=== PATIENT | female | born 1950 ===

== ENCOUNTER 2018-09-19 16:07 | Observation (INO) ==
[2018-09-19] MEDS ORDERED: GLUCAGON 1 MG VIAL IM PRN (19:06)
[2018-09-19] MEDS ORDERED: ONDANSETRON 4 MG/2 ML VIAL IV PRN (19:06)
[2018-09-19] MEDS ORDERED: DEXTROSE 50% 25 GM/50 ML VIAL IV PRN (19:06)
[2018-09-19] MEDS ORDERED: ACETAMINOPHEN 325 MG TABLET PO PRN (19:06)
[2018-09-19] MEDS: INSULIN REGULAR 100 UNIT/ML SUBCUT SCH (21:00)
[2018-09-19] MEDS: SODIUM CHLORIDE 0.9% 1,000 ML IV SCH (21:08)
[2018-09-19] MEDS: ATORVASTATIN 40 MG TABLET PO SCH (21:08)
[2018-09-19] MEDS: ENOXAPARIN 40 MG/0.4 ML SYRINGE SUBCUT SCH (21:08)
[2018-09-20 03:20] LABS: Basophils # 0.1 10*3/uL (0.0-0.2); Basophils % 0.8 % (0.0-0.8); Eosinophils # 0.2 10*3/uL (0.0-0.87); Eosinophils % 2.1 % (0.00-10.9); Hematocrit 36.1 VOL% (35.7-47.0); Immature Granulocytes % 0.2 %; Immature Granulocytes Absolute 0.02 #; Lymphocytes # 2.2 10*3/uL (1.4-4.0); Lymphocytes % 26.1 % (21.3-54.2); Mean Corpuscular HGB Conc 33.2 GM/DL (32-36); Mean Corpuscular Hemoglobin 30 PG (27-34); Mean Corpuscular Volume 90.3 FL (87-102); Mean Platelet Volume 10.5 FL (9.6-12.0); Monocytes # 0.7 10*3/uL (0.11-0.8); Monocytes % 8.2 % (1.7-12.7); Neutrophils # 5.3 10*3/uL (1.4-7.4); Neutrophils % 62.6 % (38.7-73.9); Platelet Count 296 T/CUMM (130-400); Red Cell Distribution Width 12.5 % (9.3-17.3); White Blood Count 8.5 T/CUMM (4-12)
[2018-09-20 03:50] LABS: Calcium 8.3 MG/DL (8.5-10.1); Potassium 3.1 MMOL/L (3.5-5.1); Risk Ratio 2.97; Thyroid Stimulating Hormone 2.5 uIU/ml (0.358-3.74); VLDL CHOLESTEROL 41.6 MG/DL
[2018-09-20] MEDS: SODIUM CHLORIDE 0.9% 1,000 ML IV SCH ×4 (06:27→21:03)
[2018-09-20] MEDS ORDERED: POTASSIUM CHLORIDE 20 MEQ TABLET PO PRN (07:46)
[2018-09-20] MEDS ORDERED: MAGNESIUM SULF RIDER 4 GM in PREMIX 1 EACH IV PRN ×2 (07:46→11:42)
[2018-09-20] MEDS: INSULIN REGULAR 100 UNIT/ML SUBCUT SCH ×4 (08:13→21:02)
[2018-09-20] MEDS: MAGNESIUM SULF RIDER 2 GM in PREMIX 1 EACH IV PRN (08:52)
[2018-09-20] MEDS: CLOPIDOGREL 75 MG TABLET PO SCH (08:53)
[2018-09-20] MEDS: metFORMIN 500 MG TABLET PO SCH ×2 (08:53→17:04)
[2018-09-20] MEDS: ASPIRIN EC 81 MG TABLET PO SCH (08:54)
[2018-09-20] MEDS: POTASSIUM CHLORIDE 20 MEQ TABLET PO PRN ×4 (08:54→17:05)
[2018-09-20] MEDS ORDERED: LISINOPRIL 2.5 MG TABLET PO SCH (09:00)
[2018-09-20] MEDS ORDERED: MAGNESIUM SULF RIDER 2 GM in PREMIX 1 EACH IV PRN (11:42)
[2018-09-20] MEDS: PANTOPRAZOLE 20 MG TABLET PO SCH (12:15)
[2018-09-20] MEDS: LISINOPRIL 5 MG TABLET PO SCH (13:48)
[2018-09-20] MEDS: NITROGLYCERIN 2% OINT 1 INCH/GM PACK TOP SCH ×2 (13:48→18:27)
[2018-09-20] MEDS: GABAPENTIN 100 MG CAPSULE PO SCH (21:02)
[2018-09-20] MEDS: ATORVASTATIN 40 MG TABLET PO SCH (21:02)
[2018-09-20] MEDS: ENOXAPARIN 40 MG/0.4 ML SYRINGE SUBCUT SCH (21:02)
[2018-09-20] MEDS: ACETAMINOPHEN 325 MG TABLET PO SCH (21:02)
[2018-09-21] MEDS: NITROGLYCERIN 2% OINT 1 INCH/GM PACK TOP SCH ×3 (00:12→12:14)
[2018-09-21] MEDS: SODIUM CHLORIDE 0.9% 1,000 ML IV SCH ×2 (00:12→03:46)
[2018-09-21 03:31] LABS: Basophils # 0.1 10*3/uL (0.0-0.2); Eosinophils # 0.2 10*3/uL (0.0-0.87); Eosinophils % 2.8 % (0.00-10.9); Hematocrit 34.6 VOL% (35.7-47.0); Hemoglobin 11.3 GM/DL (12.0-16.0); Immature Granulocytes % 0.1 %; Immature Granulocytes Absolute 0.01 #; Lymphocytes # 2.3 10*3/uL (1.4-4.0); Lymphocytes % 31.5 % (21.3-54.2); Mean Corpuscular HGB Conc 32.7 GM/DL (32-36); Mean Corpuscular Hemoglobin 30 PG (27-34); Mean Corpuscular Volume 92.5 FL (87-102); Mean Platelet Volume 10.3 FL (9.6-12.0); Monocytes # 0.6 10*3/uL (0.11-0.8); Monocytes % 7.7 % (1.7-12.7); Neutrophils # 4.1 10*3/uL (1.4-7.4); Neutrophils % 56.9 % (38.7-73.9); Platelet Count 283 T/CUMM (130-400); Red Blood Count 3.74 MC/CUMM (3.8-5.5); Red Cell Distribution Width 12.6 % (9.3-17.3); White Blood Count 7.3 T/CUMM (4-12)
[2018-09-21 03:50] LABS: Calcium 7.7 MG/DL (8.5-10.1); Osmolality,Calculated 284.8 MOS/KG (273-304); Potassium 3.9 MMOL/L (3.5-5.1)
[2018-09-21] MEDS: LISINOPRIL 5 MG TABLET PO SCH (05:26)
[2018-09-21] MEDS: INSULIN REGULAR 100 UNIT/ML SUBCUT SCH ×2 (08:06→12:14)
[2018-09-21] MEDS ORDERED: cloNIDine 0.1 MG TABLET PO ONE (08:22)
[2018-09-21] MEDS ORDERED: FUROSEMIDE 40 MG/4 ML VIAL IV ONE (08:45)
[2018-09-21] MEDS ORDERED: LABETALOL 20 MG/4 ML SYRINGE IV ONE (08:46)
[2018-09-21] MEDS: MAGNESIUM SULF RIDER 2 GM in PREMIX 1 EACH IV PRN (08:58)
[2018-09-21] MEDS ORDERED: LISINOPRIL 5 MG TABLET PO SCH (09:00)
[2018-09-21] MEDS: ASPIRIN EC 81 MG TABLET PO SCH (09:07)
[2018-09-21] MEDS: PANTOPRAZOLE 20 MG TABLET PO SCH (09:07)
[2018-09-21] MEDS: metFORMIN 500 MG TABLET PO SCH (09:07)
[2018-09-21] MEDS: GABAPENTIN 100 MG CAPSULE PO SCH (09:07)
[2018-09-21] MEDS: CLOPIDOGREL 75 MG TABLET PO SCH (09:07)
[2018-09-21] MEDS: ACETAMINOPHEN 325 MG TABLET PO SCH (10:55)
[2018-09-21 12:03] VITALS: BP 120/58
== END 2018-09-21 14:00 | disposition home or self-care (01) ==
LOC: N.TELES → SUATTDRO 18:41
PROVIDERS: ADMIT Internal Medicine; ATTEND Hospitalist

== ENCOUNTER 2018-10-24 12:01 | Inpatient (IN) ==
[2018-10-24] MEDS ORDERED: hydrALAZINE 20 MG/1 ML VIAL IV ONE (14:41)
[2018-10-24] MEDS ORDERED: DEXTROSE 50% 25 GM/50 ML VIAL IV PRN (14:54)
[2018-10-24] MEDS ORDERED: GLUCAGON 1 MG VIAL IM PRN (14:54)
[2018-10-24] MEDS ORDERED: diphenhydrAMINE CAP 25 MG CAPSULE PO PRN (14:54)
[2018-10-24] MEDS ORDERED: ACETAMINOPHEN 325 MG TABLET PO PRN ×2 (14:54)
[2018-10-24] MEDS ORDERED: MORPHINE 4 MG/1 ML VIAL IV PRN (14:54)
[2018-10-24] MEDS ORDERED: ONDANSETRON 4 MG/2 ML VIAL IV PRN (14:54)
[2018-10-24] MEDS ORDERED: DOCUSATE SODIUM 100 MG CAPSULE PO PRN (14:54)
[2018-10-24] MEDS ORDERED: hydrALAZINE 20 MG/1 ML VIAL IV PRN (15:25)
[2018-10-24] MEDS ORDERED: cefTRIAXone 1,000 MG in SYRINGE 1 EACH IV SCH (15:30)
[2018-10-24] MEDS: PANTOPRAZOLE 40 MG TABLET PO SCH (15:41)
[2018-10-24] MEDS: SODIUM CHLORIDE 0.9% 1,000 ML IV SCH (15:41)
[2018-10-24] MEDS: INSULIN LISPRO 100 UNIT/ML SUBCUT SCH (16:31)
[2018-10-25] MEDS: SODIUM CHLORIDE 0.9% 1,000 ML IV SCH (01:08)
[2018-10-25 05:52] LABS: Basophils # 0.1 10*3/uL (0.0-0.2); Eosinophils # 0.1 10*3/uL (0.0-0.87); Eosinophils % 1.3 % (0.00-10.9); Hematocrit 35.6 VOL% (35.7-47.0); Hemoglobin 11.5 GM/DL (12.0-16.0); Immature Granulocytes % 0.3 %; Immature Granulocytes Absolute 0.02 #; Lymphocytes # 2.6 10*3/uL (1.4-4.0); Lymphocytes % 32.6 % (21.3-54.2); Mean Corpuscular HGB Conc 32.3 GM/DL (32-36); Mean Corpuscular Hemoglobin 30 PG (27-34); Mean Corpuscular Volume 92.2 FL (87-102); Mean Platelet Volume 10.3 FL (9.6-12.0); Monocytes # 0.7 10*3/uL (0.11-0.8); Monocytes % 8.5 % (1.7-12.7); Neutrophils # 4.4 10*3/uL (1.4-7.4); Neutrophils % 56.3 % (38.7-73.9); Platelet Count 301 T/CUMM (130-400); Red Blood Count 3.86 MC/CUMM (3.8-5.5); Red Cell Distribution Width 12.7 % (9.3-17.3); White Blood Count 7.9 T/CUMM (4-12)
[2018-10-25 06:25] LABS: Calcium 8.1 MG/DL (8.5-10.1); Osmolality,Calculated 284.8 MOS/KG (273-304); Potassium 3.4 MMOL/L (3.5-5.1); Risk Ratio 2.62; Thyroid Stimulating Hormone 1.3 uIU/ml (0.358-3.74)
[2018-10-25] MEDS: INSULIN LISPRO 100 UNIT/ML SUBCUT SCH ×2 (08:22→13:31)
[2018-10-25] MEDS: PANTOPRAZOLE 40 MG TABLET PO SCH (08:26)
[2018-10-25] MEDS ORDERED: MULTIVITAMIN (CENTRUM) TABLET PO SCH (09:15)
[2018-10-25] MEDS ORDERED: ASPIRIN EC 81 MG TABLET PO SCH (09:30)
[2018-10-25] MEDS ORDERED: LATANOPROST 0.005% OPH SOLN 2.5 ML BOTTLE BOTH EYES SCH (09:30)
[2018-10-25] MEDS ORDERED: BRIMONIDINE/TIMOLOL OPH SOLN 5 ML BOTTLE BOTH EYES SCH (09:30)
[2018-10-25] MEDS ORDERED: CLOPIDOGREL 75 MG TABLET PO SCH (09:30)
[2018-10-25] MEDS ORDERED: CALCIUM (CARBONATE) 600 MG TABLET PO SCH (09:30)
[2018-10-25] MEDS ORDERED: POTASSIUM CHLORIDE 20 MEQ TABLET PO ONE (10:08)
[2018-10-25 12:39] VITALS: BP 174/79
[2018-10-25] MEDS ORDERED: GABAPENTIN 100 MG CAPSULE PO SCH (15:00)
[2018-10-25] MEDS ORDERED: metFORMIN 500 MG TABLET PO SCH (17:00)
[2018-10-25] MEDS ORDERED: ATORVASTATIN 40 MG TABLET PO SCH (21:00)
== END 2018-10-25 14:15 | disposition home or self-care (01) | DRG 69 ==
LOC: N.4E 13:51 → SUATTDRO 13:51
PROVIDERS: ADMIT Internal Medicine; ATTEND Internal Medicine